=== PATIENT | female | born 1985 ===

== ENCOUNTER 2024-12-04 14:56 | Emergency (ER) | payer OTHER, SELFPAY ==
[2024-12-04 15:00] VITALS: BP 137/87
--- NOTE | 2024-12-04 15:46 | ED.GENMED ---
History of Present Illness
General
Chief Complaint: Musculo-Skeletal Complaint
Source: patient
Exam Limitations: none
Time Seen by Provider: 12/04/24 15:20
Nursing documentation reviewed up to this point in time: agreed with
History of Present Illness
History of Present Illness:
39-year-old female with no reported chronic medical issues presents to the ER for evaluation of left leg pain. Patient reports that 3 weeks ago she injured her left lower leg/knee when she slipped on ice while skating. She says that initially she
had some mild pain and attributed to muscle strain but over the past 3 weeks pain has been consistent, that today she said she was walking up the steps and twisted her left knee slightly and noted that the pain got significantly worse. She says
that left knee and lower leg have been swollen. She says she is having trouble flexing the knee due to pain. She describes 'bursting' pain. She denies any other complaints. She has been weightbearing.
Review of Systems
Review of Systems
All Other Systems: ROS reviewed and negative except as documented in HPI and ROS
Musculoskeletal: Reports other (Left knee and lower leg pain, swelling)
Phy Exam
Physical Exam
Physical Exam:
General: Awake, alert, oriented x3; no acute distress
Head: Normocephalic, atraumatic
Eyes: Conjunctiva normal
Throat: Airway intact, handling secretions
Neck: Trachea midline
Lungs: Breathing comfortably no distress
Heart: Regular rate
Neuro: No gross deficits
Skin: Patient has minor bruise superior anterior to the left knee as well as some bruising lateral left lower leg; both appear old
Extremities: Patient has +1 edema in the left lower leg, no edema in the right lower extremity; she has strong distal pulses in the lower extremities bilaterally; with attention to the left knee she has very small effusion in the left knee joint, no
tenderness of the patella or pain with manipulation the patella, no medial joint line tenderness but she does have some mild lateral joint line tenderness in the left; she has no tenderness in the popliteal region; she does have tenderness along the
left lateral lower leg; she is able to flex left knee to about 120 degrees before limited by pain; she is able to fully extend the left knee; no laxity on varus or valgus stress, negative anterior drawer sign; right lower extremity atraumatic, no
tenderness or pain
Scores
Heart Failure Risk
Heart Failure Risk Score: Not Applicable
Heart Score for Chest Pain Patients
STEMI patient?: Not applicable
Withdrawal Assessment of Alcohol
Withdrawal Assessment Completed?: Not applicable
Course
Orders/Labs/Results
Orders:
Orders
12/04/24 15:02
Knee, Left 4 or More Views [CR Knee - Left 4 Or More View*] Urgent
Comment:
Reason For Exam: left knee pain since falling on ice 3wks ago
12/04/24 15:46
US Periph Venous LOWER Ext LT Urgent
Comment:
Reason For Exam: left leg pain and swelling
12/04/24 16:39
Crutches-Treatment ONCE
Knee Immobilizer Left-Treatmen ONCE
Vital Signs
Initial and Last Documented VS:
Initial Vital Signs
Temp Pulse Resp BP Pulse Ox
36.8 C 79 16 137/87 98
12/04/24 15:00 12/04/24 15:00 12/04/24 15:00 12/04/24 15:00 12/04/24 15:00
Last Documented Vital Signs
Temp Pulse Resp BP Pulse Ox
36.8 C 79 16 137/87 98
12/04/24 15:00 12/04/24 15:00 12/04/24 15:00 12/04/24 15:00 12/04/24 15:00
MDM/Problems Addressed
Differential Diagnosis Includes:
Knee sprain, ligamentous injury, meniscus injury, calf strain, DVT
MDM/Problems Addressed:
39-year-old female presents for evaluation of left knee/lower leg pain and swelling�initially started with an injury while ice-skating, had a minor twist while walking up stairs the other day which exacerbated symptoms. Increased pain and swelling
since. Vitals and exam as above. X-ray performed in triage reviewed by me shows no acute pathology. Given asymmetric edema and prolonged symptoms will check ultrasound in an abundance of caution to rule out DVT but suspect that this is likely a
calf strain with minor knee sprain. Lower suspicion for significant ligamentous injury with only small joint effusion and no laxity on ligamentous testing.
DVT study negative. Suspect likely knee sprain with calf strain as above. Will place in knee brace, crutches as needed, referred to orthopedics for follow-up. All questions answered.
*Radiology
Radiology exam reviewed: preliminary read by ED provider and radiology read reviewed
*Pulse Oximetry
Patient hypoxic: no
*Critical Care Note
Total Time (30-74mins, 75-104mins- exclusive of procedures): Not Applicable
Data Reviewed
Source: patient
ED Attending Note
-
Portions of this chart may have been created with voice recognition software.� Occasional wrong word or��sound alike� substitutions may have occurred due to the inherent limitations of voice recognition software.
Discharge Plan
Departure
Patient Disposition: Home (Routine Discharge)
Date of Disposition: 12/04/24
Time of Disposition: 16:40
Patient with high blood pressure during this ER visit?: No
Discharge Problem:
Injury of left lower leg
Instructions: Internal Derangement of the Knee (DC)
Referrals:
Alberto Vaughan MD [Active] - Call in 1-3 days for appt (Knee specialist)
Gay Goldsmith MD [Family Provider] -
Activity Restrictions/Additional Instructions:
Thank you for visiting the Emergency Department at [facility].
1. Please schedule a follow up appointment as directed. Call first thing tomorrow morning to make an appointment.
2. If indicated, please take your medications as instructed and indicated on discharge paperwork.
3. If any of your symptoms do not improve, or persist, or become more severe within 6-12 hours, please return to the emergency department for further care.
4. Please return to the emergency department if you develop a headache, neck pain/stiffness, fever greater than 100.4F, chest pain, shortness of breath, persistent nausea, vomiting, slurred speech, difficulty walking, numbness/tingling, weakness,
signs of infection or any other symptoms that are worrisome to you.
Please call [phone] if you have any questions.
Interventions
Interventions:
*Risk Screen - Suicide Last Done: 12/04/24 15:00
*Neglect/Abuse Screening Last Done: 12/04/24 15:00
Discharge Date and Time
Print Language: BELARUSIAN
== END 2024-12-04 17:19 | disposition home or self-care (01) ==
LOC: EMR 14:56
PROVIDERS: EMERGENCY PHYSICIAN Emergency Medicine; FAMILY PHYSICIAN Family Medicine
DX: S89.92XA Unspecified injury of left lower leg, initial encounter (principal); S80.02XA Contusion of left knee, initial encounter; S80.12XA Contusion of left lower leg, initial encounter; W00.0XXA Fall on same level due to ice and snow, initial encounter; X50.1XXA Overexertion from prolonged static or awkward postures, initial encounter
CPT/HCPCS: 29505; 99284; 73564; 93971